=== PATIENT | female | born 1965 | race Caucasian/White ===

== ENCOUNTER 2020-07-11 10:04 | Emergency (ER) | payer OTHER, SELFPAY ==
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
[2020-07-11 10:08] VITALS: BP 120/70; BP 153/80; PULSE 89; PULSE 92; RESP 18; TEMP 37.1; O2SAT 99; BMI 32.4
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
[2020-07-11] MEDS: Acetaminophen 325 MG TABLET 975 MG PO (10:18)
--- NOTE | 2020-07-11 10:42 | PC.NURSE ---
medicated per emar, able to ambulate to xray w slow, steady gait.
== END 2020-07-11 11:58 | disposition home or self-care (01) ==
PROVIDERS: Emergency Provider Emergency Medicine; PCP Nurse Practitioner Family
DX: S63.502A Unspecified sprain of left wrist, initial encounter (principal); M25.532 Pain in left wrist; I10 Essential (primary) hypertension; V43.52XA Car driver injured in collision with other type car in traffic accident, initial encounter; Y93.9 Activity, unspecified; Y92.410 Unspecified street and highway as the place of occurrence of the external cause; Y99.9 Unspecified external cause status
CPT/HCPCS: 73090; 73110; 99283; 99284